=== PATIENT | female | born 1995 | race Caucasian/White ===

== ENCOUNTER 2023-12-26 13:43 | Emergency (ER) | payer BC, SELFPAY | END 2023-12-26 14:02 | disposition left against medical advice (07) | PROVIDERS: Emergency Provider Internal Medicine Hematology & Oncology | DX: Z53.21 Procedure and treatment not carried out due to patient leaving prior to being seen by health care provider (principal) | CPT/HCPCS: 99199 ==

== ENCOUNTER 2024-10-26 18:45 | Emergency (ER) | payer BC, SELFPAY ==
--- NOTE | 2024-10-26 18:47 | ED.NECK ---
HPI - Neck Pain/Injury General Chief Complaint: Neck Pain/Injury Stated Complaint: R NECK/SHOULDER/ARM PAIN Time Seen by Provider: 10/26/24 18:46 Source: patient Mode of arrival: ambulatory Limitations: no limitations History of Present Illness HPI Narrative: Deborah is a 29-year-old female patient presenting to the clinic today with complaints of right side neck pain with radiation of pain down the right shoulder and down the arm. She reports no chest pain or shortness of breath. History of depression, asthma as a child, and pre diabetes. Is reporting pain to the right side of her neck with radiation of pain into her shoulder and some pain down her arm. States started around 4:00 pm this afternoon. Has not taken anything for pain. States that her symptoms have improved but wanted to get her neck checked out. Related Data Home Medications ?Medication ?Instructions ?Recorded ?Confirmed ?Last Taken ?Type bupropion HCl 100 mg tablet 100 mg PO BID 10/26/24 10/26/24 Unknown History fluoxetine 20 mg/5 mL (4 mg/mL) 20 mg PO . bid 10/26/24 10/26/24 Unknown History oral solution metformin 500 mg tablet 500 mg PO BID 10/26/24 10/26/24 Unknown History propranolol 10 mg tablet 10 mg PO DAILY 10/26/24 10/26/24 Unknown History Allergies Allergy/AdvReac Type Severity Reaction Status Date / Time No Known Allergies Allergy Verified 10/26/24 18:52 Review of Systems Review of Systems: Pertinent positives per HPI. Patient denies any fever, chills, rash, headache, visual changes, dizziness, cough, runny nose, sore throat, shortness of breath, chest pain, palpitations, nausea, vomiting, diarrhea, constipation, abdominal pain, or any urinary issues. PMFSH Comments At the time of my signature, I reviewed and agree with the nursing past medical, surgical, social, and family history. There is no relevant family history pertinent to the patient complaint. Exam Narrative: General: Well-developed, well nourished, in no apparent distress Head: Normocephalic, atraumatic. Cardio: Regular rate and rhythm, s1 and s2 normal, no murmur appreciated. Resp: Clear to auscultation bilaterally, no rhonchi, rales, wheezing or rubs. Musculoskeletal: No deformity, some pain over the right posterior lateral cervical/trapezius musculature with raising the arm above the head, tenderness to palpation over the posterior lateral cervical musculature and over the right trapezius musculature. Denies any radiation of pain at this time. Negative empty can of full can testing. Negative drop-arm test. Pain with turning her head to the right against resistance Hand grasps are strong and equal bilaterally, grossly normal range of motion, muscle strength strong and equal in BLE. SLT negative, patellar reflexes 2/4 bilaterally, negative foot drop, normal gait and station Course Course Emergency Course: Portions of this record may have been created with voice recognition software. Level of Care: Express Care Visit Vital Signs Vital signs: Vital signs reviewed MDM - Neck Pain/Injury MDM Narrative Medical decision making narrative: At the time of visit patient is resting comfortably on the exam table. Patient appears to be nontoxic. Complaints of right side neck pain with radiation of pain down the right shoulder and down the arm. She reports no chest pain or shortness of breath. History of depression, asthma as a child, and pre diabetes. Is reporting pain to the right side of her neck with radiation of pain into her shoulder and some pain down her arm. States started around 4:00 pm this afternoon. Has not taken anything for pain. States that her symptoms have improved but wanted to get her neck checked out. On exam patient has tenderness to palpation over the posterior lateral cervical musculature and over the right trapezius musculature. Denies any radiation of pain at this time. Hand grasps are strong and equal bilaterally. Radial pulses strong and equal Plan: I suspect patient has a posterior lateral cervical strain. Prescription for baclofen and naproxen was sent to the pharmacy. Supportive measures were discussed with the patient and they voiced understanding discharge instructions and agrees to treatment plan. Return precautions reviewed Differential Diagnosis Differential diagnosis: Likely disc disorder of cervical region, whiplash injury to neck, closed subluxation of cervical spine, fracture of cervical spine without lesion of spinal cord, cervical radiculopathy, vertebral artery dissection, torticollis, cervical spondylosis and strain of neck muscle Discharge Plan Discharge Clinical Impression: Posterolateral cervical muscle strain Qualifiers: Encounter type: initial encounter Qualified Code(s): S16.1XXA - Strain of muscle, fascia and tendon at neck level, initial encounter Patient Disposition: Home Condition: Stable Instructions: Antibiotic Form, Cervical Strain (ED) Additional Instructions: Take any prescription medication only as prescribed-baclofen and naproxen Be mindful of sedation precautions given to you if taking a muscle relaxer. May use heat or ice to the affected area Consider massage or chiropractor adjustment if this was discussed with provider May use blue emu, lidocaine patches, or asper cream to affected area- do not apply heat or ice directly over cream- can cause burn. Complete appropriate back stretching exercises. Follow up with your PCP in 3-5 days if symptom persist. Patient Language: German Prescriptions: New naproxen 500 mg tablet 500 mg PO BID PRN (Reason: pain) 7 Days Qty: 14 0RF baclofen 5 mg tablet 5 mg PO TID PRN (Reason: muscle spasm) 7 Days Qty: 21 0RF No Action metformin 500 mg tablet 500 mg PO BID fluoxetine 20 mg/5 mL (4 mg/mL) solution 20 mg PO . bid bupropion HCl 100 mg tablet 100 mg PO BID propranolol 10 mg tablet 10 mg PO DAILY Follow-up/Referrals: Brie,Milagros Choi [Primary Care Provider] Time of Disposition: 19:01 Quality NIHSS Nursing Documentation ED NIHSS nursing documentation: reviewed/agree
[2024-10-26 18:55] VITALS: BP 114/75; PULSE 86; RESP 16; TEMP 36.9; O2SAT 100
== END 2024-10-26 19:05 | disposition home or self-care (01) ==
PROVIDERS: Emergency Provider Nurse Practitioner Family; PCP Internal Medicine Infectious Disease
DX: S16.1XXA Strain of muscle, fascia and tendon at neck level, initial encounter (principal); X58.XXXA Exposure to other specified factors, initial encounter; F32.A Depression, unspecified; J45.909 Unspecified asthma, uncomplicated; R73.03 Prediabetes
CPT/HCPCS: 99213; G0463